=== PATIENT | male | born 1960 | race Caucasian/White ===

== ENCOUNTER 2022-10-07 13:12 | Emergency (ER) | payer MEDICAID, OTHER ==
[~2022-10-07] VITALS: Ht 175.3 cm; Wt 100.0 kg
[2022-10-07 13:36] VITALS: BP 114/73
== END 2022-10-07 13:38 | disposition left against medical advice (07) ==
LOC: EDBD 13:12 → ER 13:12
DX: R55 Syncope and collapse (principal); E11.9 Type 2 diabetes mellitus without complications; E78.5 Hyperlipidemia, unspecified
CPT/HCPCS: 93005